=== PATIENT | male | born 1950 | race Caucasian/White ===

== ENCOUNTER 2022-12-23 09:43 | Inpatient (IN) | payer MEDICARE ==
[~2022-12-23 09:43] MED LIST: ALIR150P6 SQ; AMLO-258 PO; ASPI-1450 PO; BENA20TA83 PO; CLOP75TA60 PO; EVOL140P3 SQ; EZET10TA57 PO; ICOS1CAP PO; METO25XL PO; PANT-31 PO; PRAS10TA6 PO; RANO500T6 PO; SODIUM CHLORIDE 0.9% 1,000 ML ONE; SUCR1ORA15 PO
[2022-12-23] MEDS ORDERED: SODIUM CHLORIDE 0.9% 1,000 ML IV ONE (10:00)
[2022-12-23] MEDS ORDERED: ASPIRIN 81 MG CHEWABLE TABLET ONE (10:10)
[2022-12-23] MEDS ORDERED: DIAZEPAM 5 MG TABLET ONE (10:11)
[2022-12-23] MEDS ORDERED: DiphenhydrAMINE HCL 50 MG CAPSULE ONE (10:11)
[2022-12-23 10:44] LABS: PROTHROMBIN TIME 10.9 SEC (9.4-11.6)
[2022-12-23] MEDS ORDERED: SODIUM BICARBONATE 50 MEQ/50 ML VIAL ONE (11:12)
[2022-12-23] MEDS ORDERED: FentaNYL CITRATE PF 100 MCG/2 ML VIAL ONE (11:12)
[2022-12-23] MEDS ORDERED: LIDOCAINE/PF 1% 30 ML VIAL ONE (11:12)
[2022-12-23] MEDS ORDERED: HEPARIN SODIUM 1000 UNITS/NS 1,000 ML ONE (11:13)
[2022-12-23] MEDS ORDERED: MIDAZOLAM HCL 2 MG/2 ML VIAL ONE (11:13)
[2022-12-23] MEDS ORDERED: IOHEXOL 300 MG/ML 100 ML VIAL ONE ×2 (11:13→11:51)
[2022-12-23 11:16] VITALS: BP 139/70
[2022-12-23] MEDS ORDERED: FentaNYL CITRATE PF 100 MCG/2 ML VIAL IVP ONE ×2 (11:30→11:45)
[2022-12-23] MEDS ORDERED: IOHEXOL 300 MG/ML 100 ML VIAL IARTER ONE (11:30)
[2022-12-23] MEDS ORDERED: HEPARIN SODIUM 1000 UNITS/NS 1,000 ML IARTER ONE (11:30)
[2022-12-23] MEDS ORDERED: MIDAZOLAM HCL 2 MG/2 ML VIAL IVP ONE ×2 (11:30→11:45)
[2022-12-23] MEDS ORDERED: LIDOCAINE 1% 30 ML/SOD BICARB 8.4% 4 ML SQ ONE (11:30)
[2022-12-23] MEDS ORDERED: IOHEXOL 300 MG/ML 50 ML VIAL ONE (11:51)
[2022-12-23] MEDS ORDERED: ASPIRIN 81 MG CHEWABLE TABLET PO ONE (12:00)
[2022-12-23] MEDS ORDERED: DiphenhydrAMINE HCL 50 MG CAPSULE PO ONE (12:00)
[2022-12-23] MEDS ORDERED: DIAZEPAM 5 MG TABLET PO ONE (12:00)
[2022-12-23] MEDS ORDERED: HEPARIN SODIUM,PORCINE 1,000 UNITS/ML 10 ML VIAL IVP ONE (12:00)
[2022-12-23] MEDS ORDERED: CLOPIDOGREL BISULFATE 300 MG TABLET ONE (12:37)
[2022-12-23] MEDS ORDERED: CLOPIDOGREL BISULFATE 300 MG TABLET PO ONE (12:45)
[2022-12-23 12:56] VITALS: BP 136/74
[2022-12-23] MEDS ORDERED: ACETAMINOPHEN 325 MG TABLET PO PRN (13:00)
[2022-12-23] MEDS ORDERED: MAGNESIUM HYDROXIDE SUSPENSION 30 ML UDCUP PO PRN (13:00)
[2022-12-23 17:55] VITALS: BP 135/71
[2022-12-23 21:17] VITALS: BP 143/71
[2022-12-23] MEDS: FAMOTIDINE 20 MG TABLET PO SCH (21:30)
[2022-12-23 23:48] VITALS: BP 120/76
[2022-12-24 04:20] VITALS: BP 127/75
[2022-12-24 07:01] LABS: BASOPHILS % (AUTO) 1.1 % (0.0-2.0); EOSINOPHILS % (AUTO) 1.9 % (1.0-6.0); HEMATOCRIT 40.3 % (41-53); LYMPHOCYTES # (AUTO) 2.3 K/uL (1.0-4.8); LYMPHOCYTES % (AUTO) 25.7 % (22.0-44.0); MEAN CORPUSCULAR HEMOGLOBIN 31.6 pg (26.0-34.0); MEAN CORPUSCULAR HGB CONC 34.6 G/dL (31.0-37.0); MEAN CORPUSCULAR VOLUME 91 fL (80-100); MONOCYTES # (AUTO) 0.8 K/uL (0.1-1.0); MONOCYTES % (AUTO) 8.9 % (2.0-9.0); NEUTROPHILS # (AUTO) 5.6 K/uL (1.8-7.7); NEUTROPHILS % (AUTO) 62.4 % (40.0-70.0); PLATELET COUNT (AUTO) 243 K/uL (150-450); RED BLOOD CELL COUNT(AUTO) 4.41 MIL/uL (4.50-5.90); RED CELL DISTRIBUTION WIDTH 13.8 % (11.5-14.5)
[2022-12-24 07:12] LABS: ALANINE AMINOTRANSFERASE 50 U/L (12-78); ALBUMIN 3.2 g/dL (3.4-5.0); ALKALINE PHOSPHATASE 69 U/L (46-116); ANION GAP 8 mmol/L (8-16); ASPARTATE AMINOTRANSFERASE 85 U/L (15-37); BILIRUBIN,TOTAL 0.7 mg/dL (0.1-1.0); CALCIUM, TOTAL 8.7 mg/dL (8.8-10.5); CARBON DIOXIDE 27 mmol/L (22-29); CHLORIDE 105 mmol/L (98-107); CREATININE 0.98 mg/dL (0.60-1.30); GLOMERULAR FILTR. RATE CALC > 60 mL/min (>60); GLUCOSE,RANDOM 99 mg/dL (70-110); SODIUM SERUM 140 mmol/L (136-145); TOTAL PROTEIN, SERUM 6.6 g/dL (6.4-8.2); UREA NITROGEN, BLOOD 17 mg/dL (7-18)
[2022-12-24 07:52] VITALS: BP 141/72
[2022-12-24] MEDS ORDERED: ASPIRIN 81 MG CHEWABLE TABLET PO SCH (09:00)
[2022-12-24] MEDS ORDERED: EZETIMIBE 10 MG TABLET PO SCH (09:00)
[2022-12-24] MEDS ORDERED: CLOPIDOGREL BISULFATE 75 MG TABLET PO SCH (09:00)
[2022-12-24] MEDS: FAMOTIDINE 20 MG TABLET PO SCH (09:18)
[2022-12-24 11:14] VITALS: BP 133/81
== END 2022-12-24 11:35 | disposition short-term general hospital (02) | DRG 247 ==
LOC: CATHLAB 09:43 → 5N 09:44 → UNDOADMIN 21:12 → 5N 21:12
PROVIDERS: ADMIT Internal Medicine; ATTEND Internal Medicine Interventional Cardiology
PROC: 4A023N7 Measurement of Cardiac Sampling and Pressure, Left Heart, Percutaneous Approach (ICD-10-PCS; principal; 2022-12-23)
PROC: B41F1ZZ Fluoroscopy of Right Lower Extremity Arteries using Low Osmolar Contrast (ICD-10-PCS; 2022-12-23)
PROC: 027035Z Dilation of Coronary Artery, One Artery with Two Drug-eluting Intraluminal Devices, Percutaneous Approach (ICD-10-PCS; 2022-12-23)
PROC: B2111ZZ Fluoroscopy of Multiple Coronary Arteries using Low Osmolar Contrast (ICD-10-PCS; 2022-12-23)
PROC: B2151ZZ Fluoroscopy of Left Heart using Low Osmolar Contrast (ICD-10-PCS; 2022-12-23)
DX: I25.110 Atherosclerotic heart disease of native coronary artery with unstable angina pectoris (principal); E78.5 Hyperlipidemia, unspecified; I10 Essential (primary) hypertension; I71.40 Abdominal aortic aneurysm, without rupture, unspecified; Z20.822 Contact with and (suspected) exposure to COVID-19
CPT/HCPCS: 75960; 80053; 85025; 85610; 85730; 92920; 92928; 93005; J1644; J2250; J3010; J3490; J7030; Q9967; 36415-L1; 36415-TC